=== PATIENT | female | born 2000 | race Two or more races ===

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

== ENCOUNTER 2022-11-08 16:15 | Emergency (ER) | payer SELFPAY ==
[2022-11-08 17:16] VITALS: BP 123/77; PULSE 77; RESP 20; TEMP 98; BMI 25.5
[2022-11-08 17:17] LABS: HCG,QUALITATIVE URINE Negative
[2022-11-08] MEDS ORDERED: AMOXICILLIN ORAL SUSPENSION - 250 MG/5 ML ONE (18:08)
[2022-11-08 18:26] LABS: EPITHELIAL CELLS FEW /hpf
[2022-11-08 18:42] LABS: SYPHILIS W/ RPR CONF NON-REACTIVE (NONREACTIVE)
[2022-11-08 19:11] LABS: HIV INTERPRETATION NEGATIVE (NEGATIVE)
== END 2022-11-08 19:19 | disposition home or self-care (01) ==
LOC: FER 16:15
DX: Z20.2 Contact with and (suspected) exposure to infections with a predominantly sexual mode of transmission (principal)
CPT/HCPCS: 36415; 81003; 81015; 84703; 86780; 87389; 87491; 87591; 99283-25